=== PATIENT | female | born 1990 | race Hispanic/Latino ===

== ENCOUNTER 2023-01-30 23:39 | Observation (INO) | payer OTHER ==
[~2023-01-30] VITALS: Ht 160 cm; Wt 87.1 kg
[2023-01-30 23:41] VITALS: BP 128/79; PULSE 78; RESP 18
[2023-01-31 00:28] LABS: APPEARANCE,URINE CLEAR (CLEAR); BILIRUBIN,URINE NEGATIVE (NEGATIVE); COLOR,URINE LIGHT-YELLOW (YELLOW); GLUCOSE, URINE (UA) NEGATIVE (NEGATIVE); KETONES,URINE NEGATIVE (NEGATIVE); LEUKOCYTE ESTERASE ,URINE 25 Leu/uL (NEGATIVE); NITRATE,URINE NEGATIVE (NEGATIVE); OCCULT BLOOD,URINE NEGATIVE (NEGATIVE); PH,URINE 6.5 (5.0-8.0); PROTEIN,URINE NEGATIVE (NEGATIVE); UROBILINOGEN,URINE 0.2 mg/dL (0.2-1.0)
[2023-01-31 00:32] LABS: ADD UA MICROSCOPIC YES
[2023-01-31 00:33] LABS: BACTERIA,URINE RARE /HPF (None Seen); MUCUS,URINE RARE LPF (None Seen); RBC,URINE 0-1 /HPF (0-1); SQUAMOUS EPITHELIAL CELL,UR MOD /HPF (0-2)
== END 2023-01-31 01:10 | disposition home or self-care (01) ==
LOC: EDH 23:39 → LDH 23:58
PROVIDERS: ADMIT Obstetrics & Gynecology; ATTEND Obstetrics & Gynecology
DX: O99.891 Other specified diseases and conditions complicating pregnancy (principal); M79.89 Other specified soft tissue disorders; R10.9 Unspecified abdominal pain; Z3A.38 38 weeks gestation of pregnancy
CPT/HCPCS: 81001; G0378

== ENCOUNTER 2024-04-09 11:15 | Emergency (ER) | payer SELFPAY ==
[~2024-04-09] VITALS: Ht 160 cm; Wt 77.1 kg
[~2024-04-09 11:15] MED LIST: ACET-2079 PO; PREN-154 PO
[2024-04-09 12:01] LABS: BASOPHILS # (AUTO) 0.03 K/uL (0.00-0.20); BASOPHILS % (AUTO) 0.3 % (0.0-5.0); HEMATOCRIT 39.7 % (36-48); IMMATURE GRANULOCYTE ABSOLUTE 0.04 K/uL (0-1); LYMPHOCYTES # (AUTO) 0.7 K/uL (1.0-4.8); LYMPHOCYTES % (AUTO) 6.3 % (21.0-51.0); MEAN CORPUSCULAR HEMOGLOBIN 28.9 pg (27.0-33.0); MEAN CORPUSCULAR HGB CONC 33.2 g/dL (32.0-36.0); MEAN CORPUSCULAR VOLUME 87.1 fL (79-99); MONOCYTES # (AUTO) 0.5 K/uL (0.1-1.0); NEUTROPHILS # (AUTO) 9.9 K/uL (1.8-7.7); PLATELET COUNT (AUTO) 273 K/uL (130-400); RED BLOOD CELL COUNT(AUTO) 4.56 MIL/uL (4.00-5.50); RED CELL DISTRIBUTION WIDTH 12.8 % (11.0-15.5); WHITE BLOOD COUNT (AUTO) 11.1 K/uL (4.8-10.8)
[2024-04-09 12:04] LABS: APPEARANCE,URINE CLEAR (CLEAR); BILIRUBIN,URINE NEGATIVE (NEGATIVE); COLOR,URINE YELLOW (YELLOW); GLUCOSE, URINE (UA) NEGATIVE (NEGATIVE); KETONES,URINE 150 mg/dL (NEGATIVE); LEUKOCYTE ESTERASE ,URINE NEGATIVE Leu/uL (NEGATIVE); NITRATE,URINE NEGATIVE (NEGATIVE); OCCULT BLOOD,URINE SMALL (NEGATIVE); PROTEIN,URINE 30 mg/dL (NEGATIVE); UROBILINOGEN,URINE 0.2 mg/dL (0.2-1.0)
[2024-04-09 12:05] LABS: ADD UA MICROSCOPIC YES
[2024-04-09 12:10] LABS: BACTERIA,URINE FEW /HPF (None Seen); MUCUS,URINE MOD LPF (None Seen); SQUAMOUS EPITHELIAL CELL,UR MANY /HPF (0-2)
[2024-04-09 12:10] LABS: CREATININE 0.6 mg/dL (0.5-1.0); POTASSIUM 3.6 mmol/L (3.5-5.1)
[2024-04-09 12:37] LABS: ALBUMIN 3.5 g/dL (3.5-5.0); BILIRUBIN,DIRECT 0.1 mg/dL (0.0-0.3); BILIRUBIN,TOTAL 0.5 mg/dL (0.2-1.0); TOTAL PROTEIN, SERUM 7.8 g/dL (6.0-8.3)
[2024-04-09] MEDS ORDERED: ondanSETRON 4MG INJ IVP ONE (14:30)
[2024-04-09] MEDS: 0.9%NACL 1000ML 1,000 ML IV ONE (14:30)
--- NOTE | 2024-04-09 16:15 | HMCIMG ---
US OB <14 WEEKS REASON: ABD PAIN COMPARISON: None TECHNIQUE: Routine pelvic sonogram was performed. FINDINGS: Uterus is 10 x 5.7 x 7.5 cm. There is an intrauterine gestational sac. There is a pole corresponding with a 7 week 2 day IUP, heart rate 141 BPM. Left ovary appears normal. Right ovary was not separately identified. There are no adnexal masses. There is no free fluid in the cul-de-sac. IMPRESSION: 1. Intrauterine gestation 7 weeks 2 days by crown-rump length, heart rate 141 BPM.
[2024-04-09] MEDS ORDERED: CEPH500B PO (16:21)
--- NOTE | 2024-04-09 16:23 | NUR ---
ASSUMED CARE AT THIS TIME.
--- NOTE | 2024-04-09 16:24 | ERN ---
General Chief Complaint: Vomiting in Stated Complaint: 6WKS , DIARRHEA, VOMITTING Time Seen by MD: 11:20 Time Seen by Midlevel: 11:20 Source: patient History of Present Illness Initial Comments Patient is a 34-year-old female presenting to the emergency department with nausea, vomiting, and diarrhea that started today. She reports sick contacts at home with similar symptoms. She reports being approximately six weeks and was concerned that there was something wrong with her baby. Denies any vaginal bleeding or lower abdominal cramping. Denies any other symptoms at this time. Allergies: Coded Allergies: No Known Drug Allergies (Unverified Allergy, Unknown, 01/30/23) Home Meds Reported Medications Acetaminophen with Codeine (Acetaminophen-Cod #3 Tablet) 300 Mg-30 Mg Tablet, 2 EACH PO Q4PRN, TAB 02/10/23 Vits #93/Iron Fum/FA ( Formula Tablet) 9 Mg Iron-267 Mcg Tablet, 1 EACH PO DAILY, TAB 02/09/23 Past Medical History Past Medical History: No Pertinent History Past Surgical History: Female( History) : 1 Para: 0 Aborts: 0 ROS Dictation CONSTITUTIONAL: Negative except for HPI HEAD/FACE: Negative except for HPI EENT: Negative except for HPI RESPIRATORY: Negative except for HPI GASTROINTESTINAL/ABDOMINAL: Negative except for HPI GENITOURINARY: Negative except for HPI MUSCULOSKELETAL: Negative except for HPI INTEGUMENTARY: Negative except for HPI NEUROLOGICAL/PSYCH: Negative except for HPI HEMATOLOGIC/LYMPHATIC: Negative except for HPI All Systems Negative, Except as noted above. 13 point review of systems assessed and all negative except for above. Physical Exam Physical Exam Dictation Vital Signs reviewed General Appearance: Alert, oriented x 3, no acute distress, well developed, nourished. Head and Face: non-traumatic. Eyes: PERRL, pink conjunctivas, eyelid no trauma, anterior chamber with arcus senilis. Ears: Pinnas intact and no signs of trauma or erythema ear canals clear and no discharge TM no erythema Nose: No discharge, no bleeding. Oropharynx: Mouth normal, tongue pink, pharynx clear,no erythema, tonsils no exudates, no abscesses noted, mucous membrane moist Neck: Supple, non-tender, no thyromegaly, no masses, no JVD, no bruits Breast:Deferred Chest:No tenderness, no crepitus, no paradoxical movement, no retractions Lungs:Clear, well-ventilated, symmetric, no rales, no wheezing, no rhonchi, no stridor, good breath sounds bilaterally Heart: Regular rate, regular rhythm, no murmur, no gallops Vascular: no peripheral edema, Abdomen: Soft, positive bowel sounds, nondistended, no guarding, nontender, no rebound, no masses no hepatomegaly, no splenomegaly, no Duke's sign, no hernias. Rectal: Deferred Genital: Deferred Neurological: Normal speech, motor function intact, sensory function intact Musculoskeletal: Neck nontender, full range of motion, back nontender, full range of motion, Extremities: nontender, full range of motion Skin: Color pink, dry, no turgor, no rash, no lacerations, no abrasions, no contusions. Lymphatic: Deferred Results Laboratory and Microbiology Lab and Micro Result Laboratory Tests Test 04/09/24 11:50 04/09/24 11:55 Urine Color YELLOW (YELLOW) Urine Appearance CLEAR (CLEAR) Urine pH 6.0 (5.0-8.0) Urine Specific Homer 1.035 (1.001-1.031) Urine Protein 30 mg/dL (NEGATIVE) H Urine Glucose (UA) NEGATIVE mg/dL (NEGATIVE) Urine Ketones 150 mg/dL (NEGATIVE) H Urine Occult Blood SMALL (NEGATIVE) H Urine Nitrate NEGATIVE (NEGATIVE) Urine Bilirubin NEGATIVE mg/dL (NEGATIVE) Urine Urobilinogen 0.2 mg/dL (0.2-1.0) Urine Leukocyte Esterase NEGATIVE Ford/uL Urine RBC 11-25 /HPF (0-1) H Urine WBC 2-5 /HPF (0-1) H Urine Squamous Epithelial Cells MANY /HPF (0-2) Urine Bacteria FEW /HPF (None Seen) White Blood Count 11.1 K/uL (4.8-10.8) H Red Blood Count 4.56 MIL/uL (4.00-5.50) Hemoglobin 13.2 g/dL (12.0-16.0) Hematocrit 39.7 % (36-48) Mean Corpuscular Volume 87.1 fL (79-99) Mean Corpuscular Hemoglobin 28.9 pg (27.0-33.0) Mean Corpuscular Hemoglobin Concent 33.2 g/dL (32.0-36.0) Red Cell Distribution Width 12.8 % (11.0-15.5) Platelet Count 273 K/uL (130-400) Mean Platelet Volume 10.6 fL (7.5-10.5) H Immature Granulocyte % (Auto) 0.4 % (0-1) Neutrophils (%) (Auto) 89.0 % (40.0-77.0) H Lymphocytes (%) (Auto) 6.3 % (21.0-51.0) L Monocytes (%) (Auto) 4.0 % (3.0-13.0) Eosinophils (%) (Auto) 0.0 % (0.0-8.0) Basophils (%) (Auto) 0.3 % (0.0-5.0) Neutrophils # (Auto) 9.9 K/uL (1.8-7.7) H Lymphocytes # (Auto) 0.7 K/uL (1.0-4.8) L Monocytes # (Auto) 0.5 K/uL (0.1-1.0) Eosinophils # (Auto) 0.00 K/uL (0.00-0.70) Basophils # (Auto) 0.03 K/uL (0.00-0.20) Absolute Immature Granulocyte (auto 0.04 K/uL (0-1) Nucleated Red Blood Cells 0.0 % (0.0-0.19) White Cell Morphology Comment See comments Sodium Level 134 mmol/L (136-145) L Potassium Level 3.6 mmol/L (3.5-5.1) Chloride Level 101 mmol/L (101-111) Carbon Dioxide Level 24 mmol/L (21-32) Blood Urea Nitrogen 6 mg/dL (7-18) L Creatinine 0.6 mg/dL (0.5-1.0) Glomerular Filtration Rate Calc 122 mL/min (>90) Random Glucose 99 mg/dL (70-105) Total Calcium 8.3 mg/dL (8.5-10.1) L Total Bilirubin 0.5 mg/dL (0.2-1.0) Direct Bilirubin 0.1 mg/dL (0.0-0.3) Aspartate Amino Transf (AST/SGOT) 12 U/L (10-37) Alanine Aminotransferase (ALT/SGPT) 22 U/L (12-78) Alkaline Phosphatase 86 U/L (50-136) Total Protein 7.8 g/dL (6.0-8.3) Albumin 3.5 g/dL (3.5-5.0) Lipase 16 U/L (16-77) Human Chorionic Gonadotropin, Quant 50433 mIU/mL (0-5) H Labs Reviewed?: Yes MDM MDM: Differential diagnosis: 1st trimester , gastroenteritis, electrolyte abnormality, dehydration, urinary tract infection There are no social concerns with this patient. Prescription drug management Prescriptions will include: Keflex Medical management and examination interpretation discussions were had by me with other qualified healthcare professionals as indicated for the patient's care. ED Course Orders Procedure Category Date Status Time Cbc With Differential LAB 04/09/24 Complete 11:20 Basic Metabolic Panel LAB 04/09/24 Complete 11:20 Lipase LAB 04/09/24 Complete 11:20 Hepatic Function Panel LAB 04/09/24 Complete 11:20 Hcg,Quantitative LAB 04/09/24 Complete 11:20 Urinalysis Profile LAB 04/09/24 Complete 11:20 0.9%Nacl 1000ml (Ns PHA 04/09/24 Complete 1000ml) 14:30 Ondansetron 4mg Inj PHA 04/09/24 Complete (Zofran 4mg Inj) 14:30 Ceftriaxone 1g Vial PHA 04/09/24 Complete (Rocephine 1g Inj) 14:30 Us Ob <14 Weeks US 04/09/24 Resulted 15:27 Current Medications Medications (Trade) Dose Ordered Sig/Gibran Route PRN Reason Start Time Stop Time Status Last Admin Dose Admin Ceftriaxone Sodium (ROCEphine 1G INJ) 1 gm ONCE ONCE IM 04/09/24 14:30 04/09/24 14:31 DC Ondansetron HCl (zoFRAN 4MG INJ) 4 mg ONCE ONCE IVP 04/09/24 14:30 04/09/24 14:31 DC Sodium Chloride 1,000 ml @ 0 mls/hr ONCE ONCE IV 04/09/24 14:30 04/09/24 14:31 DC Vital Signs Date Time Temp Pulse Resp B/P (MAP) Pulse Ox O2 Delivery O2 Flow Rate FiO2 04/09/24 11:29 98.2 82 20 123/47 99 Room Air 0 [facility] [address] [place] [id number] IMAGING REPORT Signed PATIENT: VISHNU MANNING MR#: [id number] : 1990 SEX: F AGE: 34 LOCATION: [facility] ORDER 26 STATUS: REG ER REPORT#: [id number] SERVICE 26 REASON: ABD PAIN ORDERING PHYSICIAN: MELANI VILLALPANDO PROCEDURE: OB <14 - US OB <14 WEEKS US OB <14 WEEKS REASON: ABD PAIN COMPARISON: None TECHNIQUE: Routine pelvic sonogram was performed. FINDINGS: Uterus is 10 x 5.7 x 7.5 cm. There is an intrauterine gestational sac. There is a pole corresponding with a 7 week 2 day IUP, heart rate 141 BPM. Left ovary appears normal. Right ovary was not separately identified. There are no adnexal masses. There is no free fluid in the cul-de-sac. IMPRESSION: 1. Intrauterine gestation 7 weeks 2 days by crown-rump length, heart rate 141 BPM. DICTATED BY: MARJAN CASSIDY MD DATE: 04/09/241610 ELECTRONICALLY SIGNED BY: MARJAN CASSIDY MD DATE: 04/09/24 161 DX & DISP Disposition: Discharge Departure Impression: Primary Impression: First trimester Additional Impression: Urinary tract infection Condition: Stable Scripts Cephalexin Monohydrate (Keflex) 500 Mg Cap 500 MG PO QID for 7 Days, #28 CAP Prov: MELANI VILLALPANDO 04/09/24 Additional Instructions: Your blood work today [place] [address] Your urinalysis is consistent with infection. Your pelvic ultrasound shows an intrauterine gestation measuring seven weeks and two days with positive heart tones. Please follow up with your primary care doctor and OBGYN for outpatient evalua tion. Return to the ER for any new or worsening symptoms Referrals: SELF,REFERRAL (PCP) Time of Disposition: 16:22 I have reviewed the case, and I agree with, Diagnosis and Plan I performed the substantive portion of the visit. I have reviewed and personally made and approve the management plan that is documented in the note by myself or the SÁNCHEZ. I acknowledge for responsibility for the patient's management plan. MELANI VILLALPANDO Apr 09, 2024 16:24
[2024-04-09 16:25] VITALS: BP 121/80; PULSE 67; RESP 18; TEMP 98.6; O2SAT 99
[2024-04-09] MEDS: ondanSETRON ODT 4MG TAB SL ONE (16:40)
[2024-04-09] MEDS: cefTRIAXone 1G VIAL IM ONE (16:40)
[2024-04-09] MEDS: ondanSETRON ODT 4MG TAB ONE (16:41)
== END 2024-04-09 16:53 | disposition home or self-care (01) ==
LOC: EDH 11:15
DX: O23.41 Unspecified infection of urinary tract in pregnancy, first trimester (principal); O26.891 Other specified pregnancy related conditions, first trimester; R19.7 Diarrhea, unspecified; O21.9 Vomiting of pregnancy, unspecified; N39.0 Urinary tract infection, site not specified; R10.2 Pelvic and perineal pain; Z98.890 Other specified postprocedural states; Z3A.01 Less than 8 weeks gestation of pregnancy
CPT/HCPCS: 99285; 76801; 80076; 80048; 84702; 83690; 85025; 81001; 36415; 96372; J0696